=== PATIENT | male | born 1950 | race Caucasian/White ===

== ENCOUNTER 2021-09-17 07:28 | Day surgery (SDC) | payer OTHER, MEDICARE ==
[2021-09-11 12:06] VITALS: BMI 29.5
[2021-09-17] MEDS ORDERED: PROPOFOL 20 ML ONE ×2 (09:20→10:48)
[2021-09-17] MEDS ORDERED: EPINEPHrine/PF 1 MG/1 ML (1:1,000) AMPULE ONE (09:43)
[2021-09-17] MEDS ORDERED: ERYTHROMYCIN 0.5% OPHTHALMIC OINTMENT 3.5 GM TUBE ONE (09:43)
[2021-09-17] MEDS ORDERED: TETRACAINE 0.5% OPHTH SOLN 2 ML BOTTLE ONE (09:43)
[2021-09-17] MEDS ORDERED: ceFAZolin SODIUM 1 GM VIAL ONE ×2 (09:43→10:22)
[2021-09-17] MEDS ORDERED: POVIDONE-IODINE 5% OPHTHALMIC PREP 30 ML SOLUTION ONE (09:43)
[2021-09-17] MEDS ORDERED: BUPIVACAINE HCL 50 ML ONE (09:44)
[2021-09-17] MEDS ORDERED: LIDOCAINE HCL 2% (20ML MULTI-DOSE VIAL) ONE (09:44)
[2021-09-17] MEDS ORDERED: LIDOCAINE HCL 1%, 10 MG/ML (20ML VIAL) ONE (09:56)
[2021-09-17] MEDS ORDERED: MIDAZOLAM HCL 2 MG/2 ML SINGLE DOSE VIAL ONE (09:58)
[2021-09-17] MEDS ORDERED: DEXAMETHASONE SOD PHOSPHATE 4 MG/1 ML VIAL ONE (10:22)
[2021-09-17] MEDS ORDERED: GLYCOPYRROLATE 0.2 MG/1 ML VIAL ONE (10:22)
[2021-09-17] MEDS ORDERED: ONDANSETRON 4 MG/2 ML VIAL ONE (10:22)
[2021-09-17] MEDS ORDERED: oxyCODONE HCL 5 MG TABLET PO PRN (11:22)
[2021-09-17] MEDS ORDERED: ONDANSETRON 4 MG/2 ML VIAL IVPUSH PRN (11:22)
[2021-09-17] MEDS ORDERED: LACTATED RINGERS SOLUTION 1,000 ML IV SCH (11:30)
[2021-09-17 12:08] VITALS: PULSE 76; TEMP 97.9
[2021-09-17 12:28] VITALS: BP 128/83
== END 2021-09-17 12:55 | disposition home or self-care (01) ==
LOC: FASU 07:28
PROVIDERS: ATTEND Ophthalmology
PROC: 0KX10ZZ Transfer Facial Muscle, Open Approach (ICD-10-PCS; 2021-09-17)
PROC: 08SQ0ZZ Reposition Right Lower Eyelid, Open Approach (ICD-10-PCS; principal; 2021-09-17 10:26)
DX: H02.89 Other specified disorders of eyelid (principal)
CPT/HCPCS: 94760